=== PATIENT | female | born 1935 | race Asian ===

== ENCOUNTER 2018-07-27 16:38 | Inpatient (IN) | payer BC ==
[2018-07-27] MEDS: predniSONE 20 MG TAB PO (19:25)
[2018-07-27] MEDS: IPRATROPIUM (NEB) 0.5 MG/2.5 ML AMP INH (19:33)
[2018-07-27] MEDS: ALBUTEROL 0.5% (NEB) 2.5 MG/0.5 ML AMP INH (19:33)
[2018-07-27 20:02] LABS: ADD MAN DIFF? NO
[2018-07-27 20:12] LABS: WHITE BLOOD COUNT 5.2 10^3/ul (4.8-10.8)
[2018-07-27 20:12] LABS: HEMATOCRIT 44.2 % (37.0-47.0); HEMOGLOBIN 14.4 g/dl (12.0-16.0); MEAN CORPUSCULAR HEMOGLOBIN 30.5 pg (29.0-33.0); MEAN CORPUSCULAR HGB CONC 32.6 g/dl (32.0-37.0); MEAN CORPUSCULAR VOLUME 93.6 fl (82.0-101.0); MEAN PLATELET VOLUME 11.1 fl (7.4-10.4); PLATELET COUNT 199 10^3/UL (140-415); RED BLOOD COUNT 4.72 10^6/ul (4.20-5.40); RED CELL DISTRIBUTION WIDTH 14.4 % (11.5-14.5)
[2018-07-27 20:32] LABS: INR 1.05; PARTIAL THROMBOPLASTIN TIME 33.5 Sec (23.0-35.0); PROTIME 13.8 Sec (11.9-14.9); PT RATIO 1.1
[2018-07-27 20:34] LABS: ANION GAP 10 (5-13); BLOOD UREA NITROGEN 11 mg/dl (7-20); CALCIUM 9.7 mg/dl (8.4-10.2); CARBON DIOXIDE 28 mmol/L (21-31); CHLORIDE 103 mmol/L (97-110); CREATININE 0.62 mg/dl (0.44-1.00); GLUCOSE 96 mg/dl (70-220); POTASSIUM 3.8 mmol/L (3.5-5.1); SODIUM 141 mmol/L (135-144)
[2018-07-27 20:39] LABS: BAND NEUTROPHILS % (M) 1 % (0-4); EOSINOPHILS % (M) 1 % (0-7); LYMPHOCYTES #M 0.6 10^3/ul (0.8-2.9); LYMPHOCYTES % (M) 12 % (15-51); METAMYELOCYTES %M 1 % (0-0); MONOCYTE #M 0.6 10^3/ul (0.3-0.9); MONOCYTES % (M) 12 % (0-11); PLATELET ESTIMATE NORMAL; POIKILOCYTOSIS 1+ (0-0); POLYCHROMASIA 1+ (0-0); REACTIVE LYMPHOCYTES #M 0.1 10^3/ul (0.0-0.0); REACTIVE LYMPHOCYTES% (M) 3 % (0-0); SEG NEUT #M 3.6 10^3/ul (1.6-7.5); SEGMENTED NEUTROPHILS (M) % 70 % (39-77); SMUDGE%M 7 % (0-0)
[2018-07-27 20:47] LABS: TROPONIN-I < 0.012 ng/ml (0.000-0.120)
[2018-07-27 20:51] LABS: FREE THYROXINE INDEX (Calc) 2.79 ug/ml (0.65-3.89); T3 UPTAKE 27.9 % (23.5-40.5)
[2018-07-27] MEDS ORDERED: ONDANSETRON 4 MG INJ IV (21:00)
[2018-07-27] MEDS ORDERED: ACETAMINOPHEN 325 MG TAB PO (21:00)
[2018-07-27 21:14] LABS: B-TYPE NATRIURETIC PEPTIDE 727 PG/ML (0-450)
[2018-07-28] MEDS ORDERED: ONDANSETRON 4 MG INJ IV (01:30)
[2018-07-28] MEDS ORDERED: ACETAMINOPHEN 325 MG TAB PO (01:30)
[2018-07-28] MEDS ORDERED: NACL 0.9% 3 ML SYG IV (01:30)
[2018-07-28] MEDS ORDERED: ALBUTEROL/IPRATROPIUM (NEB) 3 ML AMP HHN ×2 (01:30→13:00)
[2018-07-28] MEDS: APIXABAN 5 MG TABLET PO ×3 (02:23→21:34)
[2018-07-28] MEDS: ZOLPIDEM 5 MG TAB PO (02:23)
[2018-07-28 06:11] LABS: ADD MAN DIFF? NO
[2018-07-28 06:19] LABS: WHITE BLOOD COUNT 4.1 10^3/ul (4.8-10.8)
[2018-07-28 06:19] LABS: ABNORMAL IP MESSAGE 1; BASOPHILS % 0.2 % (0.0-2.0); HEMATOCRIT 42.6 % (37.0-47.0); HEMOGLOBIN 13.8 g/dl (12.0-16.0); LYMPHOCYTES # 0.3 10^3/ul (0.8-2.9); LYMPHOCYTES % 7.1 % (15.0-51.0); MEAN CORPUSCULAR HEMOGLOBIN 30.3 pg (29.0-33.0); MEAN CORPUSCULAR HGB CONC 32.4 g/dl (32.0-37.0); MEAN CORPUSCULAR VOLUME 93.6 fl (82.0-101.0); MEAN PLATELET VOLUME 11.4 fl (7.4-10.4); MONOCYTE # 0.1 10^3/ul (0.3-0.9); MONOCYTES % 1.7 % (0.0-11.0); NEUTROPHIL # 3.7 10^3/ul (1.6-7.5); NEUTROPHILS % 90.8 % (39.0-77.0); PLATELET COUNT 196 10^3/UL (140-415); RED BLOOD COUNT 4.55 10^6/ul (4.20-5.40); RED CELL DISTRIBUTION WIDTH 14.3 % (11.5-14.5)
[2018-07-28 06:35] LABS: POSITIVE DIFF @See below
[2018-07-28 06:58] LABS: ALANINE AMINOTRANSFERASE 20 IU/L (13-69); ALBUMIN/GLOBULIN RATIO 1.42; ALKALINE PHOSPHATASE 100 IU/L (42-121); ANION GAP 10 (5-13); ASPARTATE AMINO TRANSFERASE 25 IU/L (15-46); BILIRUBIN,INDIRECT 0.9 mg/dl (0-1.1); BILIRUBIN,TOTAL 0.9 mg/dl (0.2-1.3); BLOOD UREA NITROGEN 12 mg/dl (7-20); CALCIUM 9.8 mg/dl (8.4-10.2); CARBON DIOXIDE 26 mmol/L (21-31); CHLORIDE 106 mmol/L (97-110); GLUCOSE 115 mg/dl (70-220); POTASSIUM 4.1 mmol/L (3.5-5.1); SODIUM 142 mmol/L (135-144); TOTAL PROTEIN 6.8 g/dl (6.1-8.1)
[2018-07-28] MEDS: ATORVASTATIN 40 MG TAB PO (08:10)
[2018-07-28] MEDS: FLUTICASONE/VILANTEROL 200-25 INH DEVICE INH (08:10)
[2018-07-28] MEDS: DILTIAZEM (CD) 180 MG CAP PO (08:11)
[2018-07-28] MEDS: LOSARTAN 50 MG TAB PO (08:11)
[2018-07-28] MEDS: ASCORBIC ACID 500 MG TAB PO (08:11)
[2018-07-28] MEDS: METHYLPREDNISOLONE 125 MG INJ IV (08:11)
[2018-07-28] MEDS: FUROSEMIDE 20 MG TAB PO (08:11)
[2018-07-28] MEDS ORDERED: HEPARIN 5,000 UNIT/1 ML VIAL SC (09:00)
[2018-07-28 11:15] LABS: HEMOGLOBIN A1C 5.4 % (0-5.9)
[2018-07-28] MEDS: ALBUTEROL/IPRATROPIUM (NEB) 3 ML AMP HHN ×3 (14:00→19:40)
[2018-07-28] MEDS: METHYLPREDNISOLONE 40 MG INJ IV ×2 (14:33→21:35)
[2018-07-28] MEDS ORDERED: METHYLPREDNISOLONE 125 MG INJ IV (17:00)
[2018-07-29] MEDS: ALBUTEROL/IPRATROPIUM (NEB) 3 ML AMP HHN ×3 (01:00→13:54)
[2018-07-29] MEDS: ZOLPIDEM 5 MG TAB PO (01:37)
[2018-07-29 05:40] LABS: ADD MAN DIFF? NO
[2018-07-29 05:46] LABS: ABNORMAL IP MESSAGE 1; BASOPHILS % 0.1 % (0.0-2.0); HEMATOCRIT 44.5 % (37.0-47.0); HEMOGLOBIN 14.6 g/dl (12.0-16.0); LYMPHOCYTES # 0.4 10^3/ul (0.8-2.9); LYMPHOCYTES % 5.8 % (15.0-51.0); MEAN CORPUSCULAR HEMOGLOBIN 30.8 pg (29.0-33.0); MEAN CORPUSCULAR HGB CONC 32.8 g/dl (32.0-37.0); MEAN CORPUSCULAR VOLUME 93.9 fl (82.0-101.0); MEAN PLATELET VOLUME 11.1 fl (7.4-10.4); MONOCYTE # 0.2 10^3/ul (0.3-0.9); MONOCYTES % 2.8 % (0.0-11.0); NEUTROPHIL # 6.5 10^3/ul (1.6-7.5); NEUTROPHILS % 90.9 % (39.0-77.0); PLATELET COUNT 219 10^3/UL (140-415); RED BLOOD COUNT 4.74 10^6/ul (4.20-5.40); RED CELL DISTRIBUTION WIDTH 14.1 % (11.5-14.5)
[2018-07-29 05:46] LABS: WHITE BLOOD COUNT 7.2 10^3/ul (4.8-10.8)
[2018-07-29] MEDS: METHYLPREDNISOLONE 40 MG INJ IV ×2 (06:11→14:15)
[2018-07-29 06:16] LABS: ANION GAP 10 (5-13); BLOOD UREA NITROGEN 19 mg/dl (7-20); CALCIUM 10.5 mg/dl (8.4-10.2); CARBON DIOXIDE 27 mmol/L (21-31); CHLORIDE 101 mmol/L (97-110); CHOL/HDL RATIO 2.4 RATIO; CHOLESTEROL 152 mg/dl (100-200); CREATININE 0.68 mg/dl (0.44-1.00); GLUCOSE 137 mg/dl (70-220); HDL CHOLESTEROL 62 mg/dl (33-92); LDL CHOLESTEROL,CALCULATED 83 mg/dl; MAGNESIUM 2.1 mg/dl (1.7-2.5); PHOSPHORUS 3.2 mg/dl (2.5-4.9); POTASSIUM 3.8 mmol/L (3.5-5.1); SODIUM 138 mmol/L (135-144); TRIGLYCERIDES 36 mg/dl (0-149)
[2018-07-29 06:46] LABS: POSITIVE DIFF @See below
[2018-07-29] MEDS: APIXABAN 5 MG TABLET PO (08:09)
[2018-07-29] MEDS: ASCORBIC ACID 500 MG TAB PO (08:09)
[2018-07-29] MEDS: ATORVASTATIN 40 MG TAB PO (08:09)
[2018-07-29] MEDS: AZITHROMYCIN 250 MG TAB PO (08:09)
[2018-07-29] MEDS: FUROSEMIDE 20 MG TAB PO (08:09)
[2018-07-29] MEDS: FLUTICASONE/VILANTEROL 200-25 INH DEVICE INH (08:10)
[2018-07-29] MEDS: DILTIAZEM (CD) 180 MG CAP PO (08:10)
[2018-07-29] MEDS: LOSARTAN 50 MG TAB PO (08:10)
== END 2018-07-29 19:10 | disposition home or self-care (01) | DRG 197 ==
LOC: 6WM 20:52 → FTE 16:38
DX: J84.10 Pulmonary fibrosis, unspecified (principal); J44.1 Chronic obstructive pulmonary disease with (acute) exacerbation; J44.0 Chronic obstructive pulmonary disease with (acute) lower respiratory infection; I48.2 Chronic atrial fibrillation; I10 Essential (primary) hypertension; E78.5 Hyperlipidemia, unspecified; J20.9 Acute bronchitis, unspecified; Z79.01 Long term (current) use of anticoagulants; Z86.11 Personal history of tuberculosis; Z86.73 Personal history of transient ischemic attack (TIA), and cerebral infarction without residual deficits
CPT/HCPCS: 71045; 71250; 80048; 80053; 80061; 83036; 83735; 83880; 84100; 84436; 84443; 84479; 84484; 85025; 85610; 85730; 87400; 93005; 94640; 94644; 94664; 97161; 99285-25

== ENCOUNTER 2018-09-12 23:39 | Inpatient (IN) | payer BC ==
[2018-09-13] MEDS: ALBUTEROL 0.5% (NEB) 2.5 MG/0.5 ML AMP INH (00:20)
[2018-09-13] MEDS: IPRATROPIUM (NEB) 0.5 MG/2.5 ML AMP INH (00:20)
[2018-09-13] MEDS: AZITHROMYCIN 500MG/NS (PMX) 250 ML IV (00:27)
[2018-09-13] MEDS: DEXAMETHASONE 10 MG/ML 1 ML INJ IV (00:28)
[2018-09-13 00:29] LABS: ADD MAN DIFF? NO
[2018-09-13 00:32] LABS: ABNORMAL IP MESSAGE 1; BASOPHILS % 0.4 % (0.0-2.0); EOSINOPHILS # 0.1 10^3/ul (0.0-0.5); EOSINOPHILS % 0.7 % (0.0-7.0); HEMATOCRIT 42.3 % (37.0-47.0); HEMOGLOBIN 13.8 g/dl (12.0-16.0); LYMPHOCYTES # 0.5 10^3/ul (0.8-2.9); MEAN CORPUSCULAR HEMOGLOBIN 30.4 pg (29.0-33.0); MEAN CORPUSCULAR HGB CONC 32.6 g/dl (32.0-37.0); MEAN CORPUSCULAR VOLUME 93.2 fl (82.0-101.0); MEAN PLATELET VOLUME 10.4 fl (7.4-10.4); MONOCYTES % 13.3 % (0.0-11.0); NEUTROPHIL # 5.9 10^3/ul (1.6-7.5); NEUTROPHILS % 78.2 % (39.0-77.0); PLATELET COUNT 173 10^3/UL (140-415); RED BLOOD COUNT 4.54 10^6/ul (4.20-5.40); RED CELL DISTRIBUTION WIDTH 14.6 % (11.5-14.5)
[2018-09-13 00:32] LABS: WHITE BLOOD COUNT 7.6 10^3/ul (4.8-10.8)
[2018-09-13 00:34] LABS: POSITIVE DIFF @See below
[2018-09-13 00:53] LABS: ANION GAP 9 (5-13); BLOOD UREA NITROGEN 11 mg/dl (7-20); CALCIUM 9.4 mg/dl (8.4-10.2); CARBON DIOXIDE 26 mmol/L (21-31); CHLORIDE 101 mmol/L (97-110); CREATININE 0.57 mg/dl (0.44-1.00); GLUCOSE 135 mg/dl (70-220); INR 1.19; POTASSIUM 3.3 mmol/L (3.5-5.1); PROTIME 15.2 Sec (11.9-14.9); PT RATIO 1.2; SODIUM 136 mmol/L (135-144)
[2018-09-13 00:54] LABS: PARTIAL THROMBOPLASTIN TIME 35.3 Sec (23.0-35.0)
[2018-09-13 01:04] LABS: B-TYPE NATRIURETIC PEPTIDE 708 PG/ML (0-450); TROPONIN-I < 0.012 ng/ml (0.000-0.120)
[2018-09-13] MEDS: CEFEPIME 2GM/50 ML (PMX) 50 ML IVPB (02:00)
[2018-09-13] MEDS: VANCOMYCIN 1 GM (PMX) 250 ML IVPB (02:41)
[2018-09-13] MEDS: FUROSEMIDE 20 MG INJ IV (02:48)
[2018-09-13] MEDS ORDERED: NACL 0.9% 3 ML SYG IV (03:00)
[2018-09-13] MEDS ORDERED: ONDANSETRON 4 MG INJ IV (03:00)
[2018-09-13 04:02] LABS: AADO2 Arterial 163.5 mmHg (7.0-24.0); Allen Test ACCEPTAB; Arterial Base Excess -0.6 mmol/L (-3.0-3); Arterial Blood Gas Oxygen Sat 94.2 mmHG (95.0-100.0); Arterial COHb 0.3 % (0.0-3.0); Arterial Fraction of Oxyhgb 93.5 % (93.0-99.0); Arterial HCO3 24.4 mmol/L (22.0-26.0); Arterial MetHb 0.4 % (0.0-1.5); Arterial pCO2 41.6 mmhg (35-45); Blood Gas IEPAP 15/8; Blood Gas PS 13; MODE MASK - BIPAP; Site Right Radial
[2018-09-13 04:19] LABS: LACTIC ACID 1.7 mmol/L (0.5-2.0)
[2018-09-13 05:37] LABS: ADD MAN DIFF? NO
[2018-09-13 05:42] LABS: WHITE BLOOD COUNT 7.6 10^3/ul (4.8-10.8)
[2018-09-13 05:42] LABS: ABNORMAL IP MESSAGE 1; BASOPHILS % 0.1 % (0.0-2.0); HEMATOCRIT 44.7 % (37.0-47.0); HEMOGLOBIN 14.3 g/dl (12.0-16.0); LYMPHOCYTES # 0.2 10^3/ul (0.8-2.9); LYMPHOCYTES % 2.8 % (15.0-51.0); MEAN CORPUSCULAR HEMOGLOBIN 29.8 pg (29.0-33.0); MEAN CORPUSCULAR VOLUME 93.1 fl (82.0-101.0); MEAN PLATELET VOLUME 10.9 fl (7.4-10.4); MONOCYTE # 0.1 10^3/ul (0.3-0.9); MONOCYTES % 1.8 % (0.0-11.0); NEUTROPHIL # 7.2 10^3/ul (1.6-7.5); NEUTROPHILS % 94.9 % (39.0-77.0); PLATELET COUNT 186 10^3/UL (140-415); RED CELL DISTRIBUTION WIDTH 14.5 % (11.5-14.5)
[2018-09-13 05:49] LABS: POSITIVE DIFF @See below
[2018-09-13 07:18] LABS: ALANINE AMINOTRANSFERASE 27 IU/L (13-69); ALBUMIN 4.2 g/dl (3.3-4.9); ALKALINE PHOSPHATASE 119 IU/L (42-121); ANION GAP 14 (5-13); ASPARTATE AMINO TRANSFERASE 37 IU/L (15-46); BILIRUBIN,INDIRECT 0.8 mg/dl (0-1.1); BILIRUBIN,TOTAL 0.8 mg/dl (0.2-1.3); BLOOD UREA NITROGEN 12 mg/dl (7-20); CALCIUM 9.4 mg/dl (8.4-10.2); CARBON DIOXIDE 24 mmol/L (21-31); CHLORIDE 104 mmol/L (97-110); CREATININE 0.59 mg/dl (0.44-1.00); GLUCOSE 150 mg/dl (70-220); MAGNESIUM 1.8 mg/dl (1.7-2.5); POTASSIUM 3.1 mmol/L (3.5-5.1); SODIUM 142 mmol/L (135-144)
[2018-09-13] MEDS ORDERED: VANCOMYCIN IV PER PHARMACY XX (08:30)
[2018-09-13] MEDS ORDERED: FUROSEMIDE 20 MG TAB PO (09:00)
[2018-09-13] MEDS ORDERED: METHYLPREDNISOLONE 125 MG INJ IV (09:00)
[2018-09-13] MEDS ORDERED: HEPARIN 5,000 UNIT/1 ML VIAL SC (09:00)
[2018-09-13] MEDS: ARFORMOTEROL TARTRATE 15MCG/2 ML AMP NEB ×2 (09:30→20:08)
[2018-09-13] MEDS: ATORVASTATIN 40 MG TAB PO (10:00)
[2018-09-13] MEDS: APIXABAN 5 MG TABLET PO ×2 (10:00→21:02)
[2018-09-13] MEDS: POTASSIUM CHLORIDE 100 ML IVPB ×4 (11:30→13:45)
[2018-09-13] MEDS: POTASSIUM CHLORIDE (SR) 20 MEQ TAB PO ×2 (13:45→14:09)
[2018-09-13 13:55] LABS: ADD UMIC NO; UR ASCORBIC ACID 40 mg/dL (NEGATIVE); UR BILIRUBIN (Dip) NEGATIVE (NEGATIVE); UR BLOOD (Dip) NEGATIVE (NEGATIVE); UR CLARITY CLEAR (CLEAR); UR COLOR YELLOW (YELLOW); UR GLUCOSE (Dip) NEGATIVE (NEGATIVE); UR KETONES (Dip) NEGATIVE (NEGATIVE); UR LEUKOCYTE ESTERASE (Dip) NEGATIVE Leu/ul (NEGATIVE); UR NITRITE (Dip) NEGATIVE (NEGATIVE); UR SPECIFIC GRAVITY (Dip) 1.016 (1.003-1.030); UR TOTAL PROTEIN (Dip) NEGATIVE (NEGATIVE); UR UROBILINOGEN (Dip) NEGATIVE (NEGATIVE)
[2018-09-13] MEDS: ALBUTEROL/IPRATROPIUM (NEB) 3 ML AMP HHN (17:34)
[2018-09-13] MEDS: CEFEPIME 1GM/50 ML (PMX) 50 ML IVPB (21:02)
[2018-09-13] MEDS: VANCOMYCIN 1 GM 250 ML IVPB (21:56)
[2018-09-13] MEDS: ACETAMINOPHEN 325 MG TAB PO (23:20)
[2018-09-14 05:45] LABS: ADD MAN DIFF? NO
[2018-09-14 05:50] LABS: WHITE BLOOD COUNT 9.4 10^3/ul (4.8-10.8)
[2018-09-14 05:50] LABS: ABNORMAL IP MESSAGE 1; BASOPHILS % 0.1 % (0.0-2.0); HEMATOCRIT 46.8 % (37.0-47.0); LYMPHOCYTES # 0.6 10^3/ul (0.8-2.9); MEAN CORPUSCULAR HEMOGLOBIN 30.2 pg (29.0-33.0); MEAN CORPUSCULAR HGB CONC 32.1 g/dl (32.0-37.0); MEAN CORPUSCULAR VOLUME 94.4 fl (82.0-101.0); MEAN PLATELET VOLUME 11.7 fl (7.4-10.4); MONOCYTE # 0.6 10^3/ul (0.3-0.9); NEUTROPHIL # 8.2 10^3/ul (1.6-7.5); NEUTROPHILS % 87.5 % (39.0-77.0); PLATELET COUNT 176 10^3/UL (140-415); RED BLOOD COUNT 4.96 10^6/ul (4.20-5.40); RED CELL DISTRIBUTION WIDTH 14.1 % (11.5-14.5)
[2018-09-14 06:07] LABS: POSITIVE DIFF @See below
[2018-09-14 06:21] LABS: ANION GAP 8 (5-13); BLOOD UREA NITROGEN 18 mg/dl (7-20); CARBON DIOXIDE 25 mmol/L (21-31); CHLORIDE 107 mmol/L (97-110); CREATININE 0.47 mg/dl (0.44-1.00); GLUCOSE 136 mg/dl (70-220); MAGNESIUM 2.1 mg/dl (1.7-2.5); PHOSPHORUS 3.2 mg/dl (2.5-4.9); POTASSIUM 4.8 mmol/L (3.5-5.1); SODIUM 140 mmol/L (135-144)
[2018-09-14] MEDS: ARFORMOTEROL TARTRATE 15MCG/2 ML AMP NEB ×3 (08:28→20:43)
[2018-09-14] MEDS: METHYLPREDNISOLONE 40 MG INJ IV (08:56)
[2018-09-14] MEDS: FUROSEMIDE 20 MG INJ IV (08:56)
[2018-09-14] MEDS: APIXABAN 5 MG TABLET PO ×2 (08:56→21:34)
[2018-09-14] MEDS: ATORVASTATIN 40 MG TAB PO (08:56)
[2018-09-14] MEDS: CEFEPIME 1GM/50 ML (PMX) 50 ML IVPB ×2 (08:57→21:39)
[2018-09-14] MEDS ORDERED: hydrALAzine 20 MG INJ IV (14:30)
[2018-09-14] MEDS: LOSARTAN 50 MG TAB PO (14:43)
[2018-09-14] MEDS: DILTIAZEM (CD) 180 MG CAP PO (14:43)
[2018-09-14] MEDS: ASCORBIC ACID 500 MG TAB PO (14:43)
[2018-09-14] MEDS: MULTIVITAMINS/MINERALS TAB PO (14:43)
[2018-09-14] MEDS: VANCOMYCIN 1 GM 250 ML IVPB (22:23)
[2018-09-15 05:17] LABS: ADD MAN DIFF? NO
[2018-09-15 05:24] LABS: BASOPHILS % 0.1 % (0.0-2.0); HEMATOCRIT 45.5 % (37.0-47.0); HEMOGLOBIN 15.1 g/dl (12.0-16.0); LYMPHOCYTES # 0.8 10^3/ul (0.8-2.9); LYMPHOCYTES % 6.5 % (15.0-51.0); MEAN CORPUSCULAR HEMOGLOBIN 30.6 pg (29.0-33.0); MEAN CORPUSCULAR HGB CONC 33.2 g/dl (32.0-37.0); MEAN CORPUSCULAR VOLUME 92.1 fl (82.0-101.0); MEAN PLATELET VOLUME 11.1 fl (7.4-10.4); MONOCYTE # 1.1 10^3/ul (0.3-0.9); NEUTROPHIL # 9.8 10^3/ul (1.6-7.5); NEUTROPHILS % 84.1 % (39.0-77.0); PLATELET COUNT 202 10^3/UL (140-415); RED BLOOD COUNT 4.94 10^6/ul (4.20-5.40); RED CELL DISTRIBUTION WIDTH 14.4 % (11.5-14.5)
[2018-09-15 05:24] LABS: WHITE BLOOD COUNT 11.6 10^3/ul (4.8-10.8)
[2018-09-15 06:14] LABS: ANION GAP 6 (5-13); BLOOD UREA NITROGEN 16 mg/dl (7-20); CALCIUM 9.7 mg/dl (8.4-10.2); CARBON DIOXIDE 29 mmol/L (21-31); CHLORIDE 106 mmol/L (97-110); CREATININE 0.49 mg/dl (0.44-1.00); GLUCOSE 114 mg/dl (70-220); MAGNESIUM 2.1 mg/dl (1.7-2.5); POTASSIUM 4.4 mmol/L (3.5-5.1); SODIUM 141 mmol/L (135-144)
[2018-09-15] MEDS: ARFORMOTEROL TARTRATE 15MCG/2 ML AMP NEB ×2 (08:18→20:45)
[2018-09-15] MEDS: ATORVASTATIN 40 MG TAB PO (08:49)
[2018-09-15] MEDS: MULTIVITAMINS/MINERALS TAB PO (08:50)
[2018-09-15] MEDS: ASCORBIC ACID 500 MG TAB PO (08:50)
[2018-09-15] MEDS: APIXABAN 5 MG TABLET PO ×2 (08:50→21:59)
[2018-09-15] MEDS: LOSARTAN 50 MG TAB PO (08:50)
[2018-09-15] MEDS: DILTIAZEM (CD) 180 MG CAP PO (08:50)
[2018-09-15] MEDS: FLUTICASONE/VILANTEROL 200-25 INH DEVICE INH (08:51)
[2018-09-15] MEDS: FUROSEMIDE 20 MG INJ IV (08:51)
[2018-09-15] MEDS: CEFEPIME 1GM/50 ML (PMX) 50 ML IVPB ×2 (08:52→21:58)
[2018-09-15] MEDS ORDERED: ALBUTEROL/IPRATROPIUM (NEB) 3 ML AMP HHN (11:00)
[2018-09-15] MEDS: BUDESONIDE (NEB) 0.25 MG/2 ML AMP HHN (20:45)
[2018-09-15 22:17] LABS: VANCOMYCIN,TROUGH 6.7 ug/ml (10.0-20.0)
[2018-09-15] MEDS: VANCOMYCIN 1 GM 250 ML IVPB (22:27)
[2018-09-16 05:53] LABS: ADD MAN DIFF? NO
[2018-09-16 05:58] LABS: BASOPHILS % 0.3 % (0.0-2.0); EOSINOPHILS % 0.4 % (0.0-7.0); HEMATOCRIT 45.9 % (37.0-47.0); HEMOGLOBIN 14.9 g/dl (12.0-16.0); LYMPHOCYTES # 1.8 10^3/ul (0.8-2.9); LYMPHOCYTES % 25.3 % (15.0-51.0); MEAN CORPUSCULAR HEMOGLOBIN 30.2 pg (29.0-33.0); MEAN CORPUSCULAR HGB CONC 32.5 g/dl (32.0-37.0); MEAN CORPUSCULAR VOLUME 92.9 fl (82.0-101.0); MEAN PLATELET VOLUME 11.2 fl (7.4-10.4); MONOCYTES % 14.9 % (0.0-11.0); NEUTROPHIL # 4.1 10^3/ul (1.6-7.5); NEUTROPHILS % 58.7 % (39.0-77.0); PLATELET COUNT 207 10^3/UL (140-415); RED BLOOD COUNT 4.94 10^6/ul (4.20-5.40); RED CELL DISTRIBUTION WIDTH 14.4 % (11.5-14.5)
[2018-09-16 06:30] LABS: ANION GAP 7 (5-13); BLOOD UREA NITROGEN 15 mg/dl (7-20); CALCIUM 9.6 mg/dl (8.4-10.2); CARBON DIOXIDE 30 mmol/L (21-31); CHLORIDE 103 mmol/L (97-110); CREATININE 0.52 mg/dl (0.44-1.00); GLUCOSE 90 mg/dl (70-220); POTASSIUM 4.2 mmol/L (3.5-5.1); SODIUM 140 mmol/L (135-144)
[2018-09-16] MEDS: BUDESONIDE (NEB) 0.25 MG/2 ML AMP HHN (08:34)
[2018-09-16] MEDS: ARFORMOTEROL TARTRATE 15MCG/2 ML AMP NEB (08:34)
[2018-09-16] MEDS: CEFEPIME 1GM/50 ML (PMX) 50 ML IVPB (09:04)
[2018-09-16] MEDS: APIXABAN 5 MG TABLET PO (09:04)
[2018-09-16] MEDS: LOSARTAN 50 MG TAB PO (09:05)
[2018-09-16] MEDS: ATORVASTATIN 40 MG TAB PO (09:05)
[2018-09-16] MEDS: MULTIVITAMINS/MINERALS TAB PO (09:05)
[2018-09-16] MEDS: DILTIAZEM (CD) 180 MG CAP PO (09:05)
[2018-09-16] MEDS: FUROSEMIDE 20 MG INJ IV (09:05)
[2018-09-16] MEDS: ASCORBIC ACID 500 MG TAB PO (09:05)
[2018-09-16] MEDS: ALBUTEROL/IPRATROPIUM (NEB) 3 ML AMP HHN ×3 (11:00→14:59)
[2018-09-16] MEDS: VANCOMYCIN 750 MG (PMX) 250 ML IVPB (11:44)
== END 2018-09-16 17:40 | disposition home health service (06) | DRG 193 ==
LOC: E/R 23:39 → 2NE 09-13 04:20 → ICU 09-13 02:18 → 2NE 09-13 15:00
PROC: 5A09357 Assistance with Respiratory Ventilation, Less than 24 Consecutive Hours, Continuous Positive Airway Pressure (ICD-10-PCS; principal; 2018-09-13)
DX: J18.9 Pneumonia, unspecified organism (principal); J96.00 Acute respiratory failure, unspecified whether with hypoxia or hypercapnia; I50.33 Acute on chronic diastolic (congestive) heart failure; J84.10 Pulmonary fibrosis, unspecified; I11.0 Hypertensive heart disease with heart failure; I48.0 Paroxysmal atrial fibrillation; E78.5 Hyperlipidemia, unspecified; J45.909 Unspecified asthma, uncomplicated; I25.10 Atherosclerotic heart disease of native coronary artery without angina pectoris; E87.6 Hypokalemia; Y95 Nosocomial condition; Z95.5 Presence of coronary angioplasty implant and graft; Z86.11 Personal history of tuberculosis; Z86.73 Personal history of transient ischemic attack (TIA), and cerebral infarction without residual deficits
CPT/HCPCS: 36415; 36600; 71045; 71046; 80048; 80053; 80202; 81003; 82803; 83605; 83735; 83880; 84100; 84484; 85025; 85610; 85730; 87040-91; 87070; 87081; 93005; 93306; 94640; 94644; 94660; 94664; 96365; 96366; 96368; 96375; 97110; 97116; 97161; 99285-25

== ENCOUNTER 2018-09-18 00:29 | Inpatient (IN) | payer BC ==
[2018-09-18] MEDS: IPRATROPIUM (NEB) 0.5 MG/2.5 ML AMP INH (01:56)
[2018-09-18] MEDS: ALBUTEROL 0.5% (NEB) 2.5 MG/0.5 ML AMP INH (01:56)
[2018-09-18 01:59] LABS: AADO2 Arterial 22.1 mmHg (7.0-24.0); Allen Test ACCEPTAB; Arterial Base Excess 2.1 mmol/L (-3.0-3); Arterial Blood Gas Oxygen Sat 96.4 mmHG (95.0-100.0); Arterial COHb 0.1 % (0.0-3.0); Arterial Fraction of Oxyhgb 95.9 % (93.0-99.0); Arterial HCO3 25.4 mmol/L (22.0-26.0); Arterial MetHb 0.4 % (0.0-1.5); Arterial pCO2 35.9 mmhg (35-45); MODE ROOM AIR; Site Right Brachial
[2018-09-18] MEDS ORDERED: NAPROXEN 500 MG TAB PO (05:30)
[2018-09-18] MEDS ORDERED: ONDANSETRON 4 MG INJ IV (05:30)
[2018-09-18] MEDS ORDERED: NACL 0.9% 3 ML SYG IV (05:30)
[2018-09-18] MEDS ORDERED: ALBUTEROL/IPRATROPIUM (NEB) 3 ML AMP INH (05:30)
[2018-09-18] MEDS: ALBUTEROL HFA 8 GM INHALER INH ×5 (07:40→21:33)
[2018-09-18] MEDS: BUDESONIDE (NEB) 0.25 MG/2 ML AMP HHN (08:25)
[2018-09-18] MEDS: ARFORMOTEROL TARTRATE 15MCG/2 ML AMP NEB (08:25)
[2018-09-18] MEDS ORDERED: MULTIVITAMINS THERAPEUTIC TAB PO (09:00)
[2018-09-18] MEDS ORDERED: CEFEPIME HCL IV (09:00)
[2018-09-18] MEDS ORDERED: MULTIVITS MIN PO (09:00)
[2018-09-18] MEDS ORDERED: IRON PO (09:00)
[2018-09-18] MEDS ORDERED: DEXTROSE ISO OSM IV (09:00)
[2018-09-18] MEDS ORDERED: LUTEIN PO (09:00)
[2018-09-18] MEDS ORDERED: [UNRECOGNIZED DRUG - OTHER] IV (09:00)
[2018-09-18] MEDS ORDERED: [UNRECOGNIZED DRUG - OTHER] PO (09:00)
[2018-09-18] MEDS: ATORVASTATIN 40 MG TAB PO (09:46)
[2018-09-18] MEDS: DILTIAZEM (CD) 180 MG CAP PO (09:47)
[2018-09-18] MEDS: APIXABAN 5 MG TABLET PO ×2 (09:47→20:17)
[2018-09-18] MEDS: FUROSEMIDE 40 MG TAB PO (09:48)
[2018-09-18] MEDS: ASCORBIC ACID 500 MG TAB PO (09:48)
[2018-09-18] MEDS: LOSARTAN 50 MG TAB PO (09:48)
[2018-09-18] MEDS: POTASSIUM CHLORIDE (SR) 8 MEQ CAP PO (09:48)
[2018-09-18] MEDS ORDERED: DEXTROSE 5% 1,000 ML IV (11:30)
[2018-09-18] MEDS ORDERED: SOD CHLORIDE 0.9% 1,000 ML IV (11:30)
[2018-09-18] MEDS: CEFEPIME 1GM/50 ML IVPB ×2 (12:55→20:18)
[2018-09-18] MEDS ORDERED: CLINDAMYCIN 300 MG CAP PO (14:00)
[2018-09-18] MEDS: ACETAMINOPHEN 325 MG TAB PO (21:33)
[2018-09-19] MEDS: ALBUTEROL HFA 8 GM INHALER INH ×3 (01:00→08:12)
[2018-09-19 06:42] LABS: ADD MAN DIFF? NO
[2018-09-19 06:54] LABS: BASOPHILS % 0.4 % (0.0-2.0); EOSINOPHILS # 0.3 10^3/ul (0.0-0.5); EOSINOPHILS % 3.7 % (0.0-7.0); HEMATOCRIT 45.1 % (37.0-47.0); HEMOGLOBIN 14.6 g/dl (12.0-16.0); LYMPHOCYTES # 1.4 10^3/ul (0.8-2.9); LYMPHOCYTES % 20.5 % (15.0-51.0); MEAN CORPUSCULAR HEMOGLOBIN 29.9 pg (29.0-33.0); MEAN CORPUSCULAR HGB CONC 32.4 g/dl (32.0-37.0); MEAN CORPUSCULAR VOLUME 92.2 fl (82.0-101.0); MEAN PLATELET VOLUME 10.8 fl (7.4-10.4); MONOCYTE # 0.8 10^3/ul (0.3-0.9); MONOCYTES % 11.3 % (0.0-11.0); NEUTROPHIL # 4.5 10^3/ul (1.6-7.5); NEUTROPHILS % 63.8 % (39.0-77.0); PLATELET COUNT 240 10^3/UL (140-415); RED BLOOD COUNT 4.89 10^6/ul (4.20-5.40); RED CELL DISTRIBUTION WIDTH 14.1 % (11.5-14.5)
[2018-09-19 07:19] LABS: ALANINE AMINOTRANSFERASE 37 IU/L (13-69); ALBUMIN 3.4 g/dl (3.3-4.9); ALBUMIN/GLOBULIN RATIO 1.13; ALKALINE PHOSPHATASE 88 IU/L (42-121); ANION GAP 7 (5-13); ASPARTATE AMINO TRANSFERASE 26 IU/L (15-46); BLOOD UREA NITROGEN 11 mg/dl (7-20); CALCIUM 9.6 mg/dl (8.4-10.2); CARBON DIOXIDE 29 mmol/L (21-31); CHLORIDE 105 mmol/L (97-110); GLUCOSE 93 mg/dl (70-220); POTASSIUM 4.2 mmol/L (3.5-5.1); SODIUM 141 mmol/L (135-144); TOTAL PROTEIN 6.4 g/dl (6.1-8.1)
[2018-09-19] MEDS: CEFEPIME 1GM/50 ML IVPB (08:11)
[2018-09-19] MEDS: FLUTICASONE/VILANTEROL 200-25 INH DEVICE INH (08:12)
[2018-09-19] MEDS: FUROSEMIDE 40 MG TAB PO (08:13)
[2018-09-19] MEDS: ATORVASTATIN 40 MG TAB PO (08:13)
[2018-09-19] MEDS: LOSARTAN 50 MG TAB PO (08:14)
[2018-09-19] MEDS: APIXABAN 5 MG TABLET PO (08:14)
[2018-09-19] MEDS: POTASSIUM CHLORIDE (SR) 8 MEQ CAP PO (08:14)
[2018-09-19] MEDS: DILTIAZEM (CD) 180 MG CAP PO (08:15)
[2018-09-19] MEDS: ASCORBIC ACID 500 MG TAB PO (08:15)
== END 2018-09-19 15:40 | disposition home or self-care (01) | DRG 204 ==
LOC: E/R 00:29 → TEL 02:54
PROC: 3E0F7GC Introduction of Other Therapeutic Substance into Respiratory Tract, Via Natural or Artificial Opening (ICD-10-PCS; principal; 2018-09-18)
DX: R06.00 Dyspnea, unspecified (principal); I50.30 Unspecified diastolic (congestive) heart failure; J84.10 Pulmonary fibrosis, unspecified; I48.0 Paroxysmal atrial fibrillation; I11.0 Hypertensive heart disease with heart failure; I25.10 Atherosclerotic heart disease of native coronary artery without angina pectoris; E78.5 Hyperlipidemia, unspecified; Z86.73 Personal history of transient ischemic attack (TIA), and cerebral infarction without residual deficits
CPT/HCPCS: 36600; 80053; 82803; 83735; 85025; 93005; 94640; 94644; 99285-25

== ENCOUNTER 2018-12-26 14:31 | Emergency (ER) | payer BC ==
[2018-12-26 15:36] LABS: ADD MAN DIFF? NO
[2018-12-26 15:40] LABS: BASOPHILS % 0.2 % (0.0-2.0); EOSINOPHILS # 0.1 10^3/ul (0.0-0.5); EOSINOPHILS % 0.6 % (0.0-7.0); HEMATOCRIT 43.8 % (37.0-47.0); HEMOGLOBIN 14.1 g/dl (12.0-16.0); LYMPHOCYTES # 0.9 10^3/ul (0.8-2.9); LYMPHOCYTES % 8.8 % (15.0-51.0); MEAN CORPUSCULAR HEMOGLOBIN 30.3 pg (29.0-33.0); MEAN CORPUSCULAR HGB CONC 32.2 g/dl (32.0-37.0); MEAN CORPUSCULAR VOLUME 94.2 fl (82.0-101.0); MEAN PLATELET VOLUME 10.5 fl (7.4-10.4); MONOCYTE # 0.8 10^3/ul (0.3-0.9); MONOCYTES % 7.3 % (0.0-11.0); NEUTROPHIL # 8.6 10^3/ul (1.6-7.5); NEUTROPHILS % 82.8 % (39.0-77.0); PLATELET COUNT 204 10^3/UL (140-415); RED BLOOD COUNT 4.65 10^6/ul (4.20-5.40); RED CELL DISTRIBUTION WIDTH 14.6 % (11.5-14.5)
[2018-12-26 15:40] LABS: WHITE BLOOD COUNT 10.3 10^3/ul (4.8-10.8)
[2018-12-26] MEDS: SOD CHLORIDE 0.9% 500 ML IV (15:52)
[2018-12-26] MEDS: LIDOCAINE/MYLANTA 40 ML BTL PO (15:52)
[2018-12-26] MEDS: BELLADONNA/PHENOBARBITAL TAB PO (15:52)
[2018-12-26] MEDS: ONDANSETRON 4 MG INJ IV (15:52)
[2018-12-26] MEDS: FAMOTIDINE 20 MG INJ IV (15:52)
[2018-12-26 15:57] LABS: ALANINE AMINOTRANSFERASE 38 IU/L (13-69); ALBUMIN/GLOBULIN RATIO 1.33; ALKALINE PHOSPHATASE 93 IU/L (42-121); ANION GAP 7 (5-13); ASPARTATE AMINO TRANSFERASE 41 IU/L (15-46); BILIRUBIN,INDIRECT 1.1 mg/dl (0-1.1); BILIRUBIN,TOTAL 1.1 mg/dl (0.2-1.3); BLOOD UREA NITROGEN 11 mg/dl (7-20); CALCIUM 9.7 mg/dl (8.4-10.2); CARBON DIOXIDE 29 mmol/L (21-31); CHLORIDE 103 mmol/L (97-110); CREATININE 0.62 mg/dl (0.44-1.00); GLUCOSE 224 mg/dl (70-220); LIPASE 105 U/L (23-300); POTASSIUM 3.7 mmol/L (3.5-5.1); SODIUM 139 mmol/L (135-144)
[2018-12-26 18:20] LABS: ADD UMIC NO; UR ASCORBIC ACID 40 mg/dL (NEGATIVE); UR BILIRUBIN (Dip) NEGATIVE (NEGATIVE); UR BLOOD (Dip) NEGATIVE (NEGATIVE); UR CLARITY CLEAR (CLEAR); UR COLOR STRAW (YELLOW); UR GLUCOSE (Dip) NEGATIVE (NEGATIVE); UR KETONES (Dip) NEGATIVE (NEGATIVE); UR LEUKOCYTE ESTERASE (Dip) NEGATIVE Leu/ul (NEGATIVE); UR NITRITE (Dip) NEGATIVE (NEGATIVE); UR SPECIFIC GRAVITY (Dip) 1.005 (1.003-1.030); UR TOTAL PROTEIN (Dip) NEGATIVE (NEGATIVE); UR UROBILINOGEN (Dip) NEGATIVE (NEGATIVE)
== END 2018-12-26 18:51 | disposition home or self-care (01) ==
LOC: E/R 14:31
DX: R10.13 Epigastric pain (principal); I10 Essential (primary) hypertension; J44.9 Chronic obstructive pulmonary disease, unspecified; R73.9 Hyperglycemia, unspecified; R40.2142 Coma scale, eyes open, spontaneous, at arrival to emergency department; R40.2362 Coma scale, best motor response, obeys commands, at arrival to emergency department; R40.2252 Coma scale, best verbal response, oriented, at arrival to emergency department; Z79.01 Long term (current) use of anticoagulants; Z86.73 Personal history of transient ischemic attack (TIA), and cerebral infarction without residual deficits
CPT/HCPCS: 36415; 71045; 80053; 81003; 83690; 85025; 93005; 96374; 96375; 99285-25

== ENCOUNTER 2018-12-27 21:54 | Emergency (ER) | payer BC ==
[2018-12-27] MEDS: morphine 4 MG/ML VIAL IV (22:31)
[2018-12-27] MEDS: ONDANSETRON 4 MG INJ IV (22:31)
[2018-12-27 22:34] LABS: ADD MAN DIFF? NO
[2018-12-27 22:41] LABS: BASOPHILS % 0.2 % (0.0-2.0); EOSINOPHILS # 0.1 10^3/ul (0.0-0.5); EOSINOPHILS % 0.9 % (0.0-7.0); HEMATOCRIT 42.3 % (37.0-47.0); HEMOGLOBIN 13.5 g/dl (12.0-16.0); LYMPHOCYTES # 1.2 10^3/ul (0.8-2.9); LYMPHOCYTES % 12.8 % (15.0-51.0); MEAN CORPUSCULAR HGB CONC 31.9 g/dl (32.0-37.0); MEAN PLATELET VOLUME 10.6 fl (7.4-10.4); MONOCYTE # 1.1 10^3/ul (0.3-0.9); MONOCYTES % 12.5 % (0.0-11.0); NEUTROPHIL # 6.6 10^3/ul (1.6-7.5); NEUTROPHILS % 73.3 % (39.0-77.0); PLATELET COUNT 205 10^3/UL (140-415); RED CELL DISTRIBUTION WIDTH 14.6 % (11.5-14.5)
[2018-12-27 22:58] LABS: ALANINE AMINOTRANSFERASE 39 IU/L (13-69); ALBUMIN 3.9 g/dl (3.3-4.9); ALBUMIN/GLOBULIN RATIO 1.34; ALKALINE PHOSPHATASE 95 IU/L (42-121); ANION GAP 7 (5-13); ASPARTATE AMINO TRANSFERASE 36 IU/L (15-46); BILIRUBIN,INDIRECT 1.1 mg/dl (0-1.1); BILIRUBIN,TOTAL 1.1 mg/dl (0.2-1.3); BLOOD UREA NITROGEN 13 mg/dl (7-20); CALCIUM 9.4 mg/dl (8.4-10.2); CARBON DIOXIDE 27 mmol/L (21-31); CHLORIDE 102 mmol/L (97-110); CREATININE 0.83 mg/dl (0.44-1.00); GLUCOSE 163 mg/dl (70-220); POTASSIUM 3.6 mmol/L (3.5-5.1); SODIUM 136 mmol/L (135-144); TOTAL PROTEIN 6.8 g/dl (6.1-8.1)
[2018-12-27] MEDS: IOHEXOL 300MG/ML 150 ML BTL (23:00)
[2018-12-27] MEDS: SOD CHLORIDE 0.9% 100 ML (23:00)
[2018-12-27 23:01] LABS: INR 1.17; PT RATIO 1.2
[2018-12-27 23:09] LABS: B-TYPE NATRIURETIC PEPTIDE 614 PG/ML (0-450); TROPONIN-I < 0.012 ng/ml (0.000-0.120)
[2018-12-27 23:22] LABS: ADD UMIC NO; UR ASCORBIC ACID 20 mg/dL (NEGATIVE); UR BILIRUBIN (Dip) NEGATIVE (NEGATIVE); UR BLOOD (Dip) NEGATIVE (NEGATIVE); UR CLARITY CLEAR (CLEAR); UR COLOR YELLOW (YELLOW); UR GLUCOSE (Dip) NEGATIVE (NEGATIVE); UR KETONES (Dip) NEGATIVE (NEGATIVE); UR LEUKOCYTE ESTERASE (Dip) NEGATIVE Leu/ul (NEGATIVE); UR NITRITE (Dip) NEGATIVE (NEGATIVE); UR SPECIFIC GRAVITY (Dip) 1.006 (1.003-1.030); UR TOTAL PROTEIN (Dip) NEGATIVE (NEGATIVE); UR UROBILINOGEN (Dip) NEGATIVE (NEGATIVE)
== END 2018-12-28 01:18 | disposition home or self-care (01) ==
LOC: E/R 12-28 01:18
DX: M54.5 Low back pain (principal); J44.9 Chronic obstructive pulmonary disease, unspecified; I10 Essential (primary) hypertension; Z79.01 Long term (current) use of anticoagulants
CPT/HCPCS: 36415; 71045; 71260; 74177; 80053; 81003; 83880; 84484; 85025; 85610; 85730; 93005; 96374; 96375; 99285-25